=== PATIENT | female | born 1940 | race Caucasian/White ===

== ENCOUNTER → 2022-12-06 | Outpatient (CLI) | payer MEDICARE, OTHER ==
[2022-12-07 11:00] LABS: Source, Urine Clean Catch
[2022-12-07 13:10] LABS: Appearance, Urine Cloudy (Clear); Bilirubin, Urine Neg (Neg); Blood, Urine 5+ (Neg); Glucose Qualitative, Urine Neg (Neg); Ketones, Urine Neg (Neg); Leukocyte Esterase, Urine 3+ (Neg); Nitrite, Urine Neg (Neg); Protein, Urine 3+ (Neg); Urobilinogen, Urine NORM (Normal)
[2022-12-07 13:24] LABS: Color, Urine Pale Yellow (P-Yellow)
[2022-12-07 13:25] LABS: Bacteria Many /hpf; Squamous Epithelial Cells Not Seen /hpf (Few); White Blood Cells, Urine TNTC /hpf (0-5)
== END ==
LOC: LAB SHORT 20:00 → LAB 20:00
DX: N39.0 Urinary tract infection, site not specified (principal)
CPT/HCPCS: 81001; 87077; 87086; 87186

== ENCOUNTER → 2022-12-30 | Outpatient (CLI) | payer MEDICARE, OTHER ==
[2022-12-31 17:39] LABS: Source, Urine Clean Catch
[2022-12-31 18:57] LABS: Appearance, Urine Turbid (Clear); Bilirubin, Urine Neg (Neg); Blood, Urine 4+ (Neg); Glucose Qualitative, Urine Neg (Neg); Ketones, Urine Neg (Neg); Leukocyte Esterase, Urine 3+ (Neg); Nitrite, Urine Pos (Neg); Protein, Urine 2+ (Neg); Urobilinogen, Urine NORM (Normal)
[2022-12-31 19:33] LABS: Color, Urine Pale Yellow (P-Yellow)
[2022-12-31 19:37] LABS: White Blood Cells, Urine TNTC /hpf (0-5)
[2022-12-31 19:38] LABS: Bacteria Many /hpf; Mucus Light (0-Heavy); Squamous Epithelial Cells Few /hpf (Few); Transitional Epithelial Cells Few /hpf (0-Rare)
== END | disposition home or self-care (01) ==
LOC: LAB SHORT 07:00 → LAB 07:00
PROVIDERS: Physician Assistant
DX: R10.84 Generalized abdominal pain (principal); R30.0 Dysuria; R35.0 Frequency of micturition
CPT/HCPCS: 81001; 87077; 87086; 87186

== ENCOUNTER → 2023-02-13 | Outpatient (CLI) | payer MEDICARE, OTHER ==
[2023-02-13 14:56] LABS: Source, Urine Clean Catch
[2023-02-13 15:40] LABS: Appearance, Urine Cloudy (Clear); Bilirubin, Urine Neg (Neg); Blood, Urine 5+ (Neg); Color, Urine Yellow (P-Yellow); Glucose Qualitative, Urine Neg (Neg); Ketones, Urine Neg (Neg); Leukocyte Esterase, Urine 3+ (Neg); Nitrite, Urine Pos (Neg); Protein, Urine 2+ (Neg); Urobilinogen, Urine NORM (Normal)
[2023-02-13 16:09] LABS: Bacteria Many /hpf; Squamous Epithelial Cells Few /hpf (Few); White Blood Cells, Urine TNTC /hpf (0-5)
== END ==
LOC: LAB 14:53 → LAB SHORT 14:53
PROVIDERS: Internal Medicine
DX: N39.0 Urinary tract infection, site not specified (principal)
CPT/HCPCS: 81001; 87077; 87086; 87186

== ENCOUNTER → 2023-03-26 | Outpatient (CLI) | payer MEDICARE, OTHER ==
[2023-03-27 10:45] LABS: Source, Urine Clean Catch
[2023-03-27 12:43] LABS: Appearance, Urine Hazy (Clear); Bilirubin, Urine Neg (Neg); Blood, Urine 4+ (Neg); Color, Urine Yellow (P-Yellow); Glucose Qualitative, Urine Neg (Neg); Ketones, Urine Neg (Neg); Leukocyte Esterase, Urine 3+ (Neg); Nitrite, Urine Pos (Neg); Protein, Urine 2+ (Neg); Specific Gravity, Urine 1.025 (1.003-1.022); Urobilinogen, Urine NORM (Normal)
[2023-03-27 13:14] LABS: White Blood Cells, Urine TNTC /hpf (0-5)
[2023-03-27 13:15] LABS: Bacteria Many /hpf; Squamous Epithelial Cells Few /hpf (Few)
== END | disposition home or self-care (01) ==
LOC: LAB SHORT 10:39 → LAB 10:39
PROVIDERS: Physician Assistant
DX: N39.0 Urinary tract infection, site not specified (principal)
CPT/HCPCS: 81001; 87077; 87086; 87186

== ENCOUNTER → 2023-04-03 | Outpatient (CLI) | payer MEDICARE, OTHER ==
[2023-04-04 15:55] LABS: Source, Urine Clean Catch
[2023-04-04 16:22] LABS: Appearance, Urine Turbid (Clear); Bilirubin, Urine Neg (Neg); Blood, Urine 5+ (Neg); Color, Urine Yellow (P-Yellow); Glucose Qualitative, Urine Neg (Neg); Ketones, Urine Neg (Neg); Leukocyte Esterase, Urine 3+ (Neg); Nitrite, Urine Pos (Neg); Protein, Urine 3+ (Neg); Specific Gravity, Urine 1.025 (1.003-1.022); Urobilinogen, Urine NORM (Normal)
[2023-04-04 16:32] LABS: Bacteria Many /hpf; Calcium Oxalate Crystals Rare /hpf; Squamous Epithelial Cells Few /hpf (Few); White Blood Cells, Urine TNTC /hpf (0-5)
== END ==
LOC: LAB SHORT 13:30 → LAB 13:30
PROVIDERS: Physician Assistant
DX: N39.0 Urinary tract infection, site not specified (principal)
CPT/HCPCS: 81001; 87077; 87086; 87186

== ENCOUNTER → 2023-04-24 | Outpatient (CLI) | payer MEDICARE, OTHER ==
[2023-04-24 16:00] LABS: Source, Urine Clean Catch
[2023-04-24 16:34] LABS: Appearance, Urine Hazy (Clear); Bilirubin, Urine Neg (Neg); Blood, Urine 5+ (Neg); Color, Urine Yellow (P-Yellow); Glucose Qualitative, Urine Neg (Neg); Ketones, Urine Neg (Neg); Leukocyte Esterase, Urine 3+ (Neg); Nitrite, Urine Pos (Neg); Protein, Urine 3+ (Neg); Specific Gravity, Urine 1.025 (1.003-1.022); Urobilinogen, Urine NORM (Normal)
[2023-04-24 16:46] LABS: Bacteria Many /hpf; Squamous Epithelial Cells Few /hpf (Few); White Blood Cells, Urine TNTC /hpf (0-5)
[2023-04-24 16:47] LABS: Renal Epithelial Rare /hpf (0-Rare); Transitional Epithelial Cells Rare /hpf (0-Rare)
== END | disposition home or self-care (01) ==
LOC: LAB 15:58 → LAB SHORT 15:58
PROVIDERS: Physician Assistant
DX: N39.0 Urinary tract infection, site not specified (principal)
CPT/HCPCS: 81001; 87077; 87086; 87186

== ENCOUNTER → 2023-05-16 | Outpatient (CLI) | payer MEDICARE, OTHER ==
[2023-05-16 18:08] LABS: Source, Urine Clean Catch
[2023-05-16 19:24] LABS: Appearance, Urine Clear (Clear); Bilirubin, Urine Neg (Neg); Blood, Urine Neg (Neg); Color, Urine Yellow (P-Yellow); Glucose Qualitative, Urine Neg (Neg); Ketones, Urine Neg (Neg); Leukocyte Esterase, Urine Neg (Neg); Nitrite, Urine Neg (Neg); Protein, Urine Neg (Neg); Urobilinogen, Urine NORM (Normal)
== END ==
LOC: LAB 18:06 → LAB SHORT 18:06
PROVIDERS: Physician Assistant
DX: N39.0 Urinary tract infection, site not specified (principal)
CPT/HCPCS: 81003

== ENCOUNTER → 2023-06-27 | Outpatient (CLI) | payer MEDICARE, OTHER ==
[2023-06-27 17:29] LABS: Source, Urine Clean Catch
[2023-06-27 19:05] LABS: Appearance, Urine Hazy (Clear); Bilirubin, Urine Neg (Neg); Blood, Urine 3+ (Neg); Glucose Qualitative, Urine Neg (Neg); Ketones, Urine Neg (Neg); Leukocyte Esterase, Urine 3+ (Neg); Nitrite, Urine Neg (Neg); Protein, Urine Neg (Neg); Specific Gravity, Urine 1.015 (1.003-1.022); Urobilinogen, Urine NORM (Normal)
[2023-06-27 19:37] LABS: Color, Urine Pale Yellow (P-Yellow)
[2023-06-27 19:38] LABS: White Blood Cells, Urine 50-100 /hpf (0-5)
[2023-06-27 19:39] LABS: Bacteria Many /hpf; Squamous Epithelial Cells Mod /hpf (Few); Transitional Epithelial Cells Rare /hpf (0-Rare)
== END ==
LOC: LAB 17:26 → LAB SHORT 17:26
PROVIDERS: Nurse Practitioner Family
DX: N39.0 Urinary tract infection, site not specified (principal)
CPT/HCPCS: 81001; 87077; 87086; 87186

== ENCOUNTER 2023-07-17 07:47 | Inpatient (IN) | payer MEDICARE, OTHER ==
[~2023-07-17] VITALS: Ht 157.5 cm; Wt 64.3 kg
[2023-07-17] MEDS ORDERED: IBUP600 PO (08:05)
[2023-07-17] MEDS ORDERED: RISPERDAL PO (08:06)
[2023-07-17] MEDS ORDERED: QUET25 PO ×2 (08:06→16:52)
[2023-07-17] MEDS ORDERED: POTA10T PO (08:06)
[2023-07-17] MEDS ORDERED: LACT PO (08:06)
[2023-07-17] MEDS ORDERED: ONELAX10 MG PR (08:07)
[2023-07-17] MEDS ORDERED: TRIM100 PO (08:07)
[2023-07-17] MEDS ORDERED: ACET325 PO (08:07)
[2023-07-17] MEDS ORDERED: ANORO ELLIPTA1 EACH INH (08:08)
[2023-07-17] MEDS ORDERED: Acyclovir800 MG PO (08:08)
[2023-07-17] MEDS ORDERED: ZYRTEC10 M2 PO (08:08)
[2023-07-17] MEDS ORDERED: FURO20 PO (08:09)
[2023-07-17] MEDS ORDERED: HYDHCL25 PO (08:15)
[2023-07-17] MEDS ORDERED: Loperamide2 MG PO (08:16)
[2023-07-17] MEDS ORDERED: PROAIR RESPICL90 MCG INH (08:17)
[2023-07-17 08:31] LABS: BASOPHILS ABSOLUTE AUTO 0.02 K/mm3 (0.00-0.23); BASOPHILS PERCENT AUTO 0 % (0-2); EOSINOPHILS PERCENT AUTO 0 % (0-6); Hematocrit 35.6 % (33.0-51.0); IMMATURE GRAN ABSOLUTE AUTO 0.06 K/mm3 (0.00-0.10); IMMATURE GRAN PERCENT AUTO 0 % (0-1); LYMPHOCYTES ABSOLUTE AUTO 0.65 K/mm3 (0.84-5.20); LYMPHOCYTES PERCENT AUTO 4 % (21-46); MONOCYTES ABSOLUTE AUTO 0.83 K/mm3 (0.16-1.47); MONOCYTES PERCENT AUTO 6 % (4-13); Mean Corpuscular HGB 29.6 pg (26.0-34.0); Mean Corpuscular HGB Conc 33.7 g/dL (31.5-36.5); Mean Corpuscular Volume 88 fL (80-100); Mean Platelet Volume 9.8 fL (9.1-12.4); NEUTROPHILS ABSOLUTE AUTO 13.06 K/mm3 (1.96-9.15); NEUTROPHILS PERCENT AUTO 89 % (41-73); Platelet Count 213 K/mm3 (150-400); RDW Coefficient Variation 13.1 % (11.7-14.2); RDW Standard Deviation 42.2 fL (35.1-46.3); Red Blood Cell Count 4.06 M/mm3 (3.80-5.20); White Blood Cell Count 14.62 K/mm3 (4.00-11.30)
[2023-07-17 09:03] LABS: Albumin, Blood 3.3 g/dL (3.4-5.0); Albumin/Globulin Ratio 0.9 (0.8-1.8); Bilirubin, Total 1.2 mg/dL (0.1-1.0); Bun/Creatinine Ratio 20.9 (12.0-20.0); Calcium, Blood 9.2 mg/dL (8.5-10.1); Creatinine, Blood 0.91 mg/dL (0.40-1.00); Globulin, Blood 3.8 g/dL (2.2-4.0); Potassium, Blood 3.8 mmol/L (3.5-5.5); Total Protein, Blood 7.1 g/dL (6.4-8.2)
[2023-07-17] MEDS ORDERED: NS 1,000 ML IV SCH ×2 (11:15→14:40)
[2023-07-17 13:01] LABS: Source, Urine Clean Catch
[2023-07-17 13:05] LABS: Appearance, Urine Cloudy (Clear); Bilirubin, Urine Neg (Neg); Blood, Urine 4+ (Neg); Color, Urine Yellow (P-Yellow); Glucose Qualitative, Urine Neg (Neg); Ketones, Urine 1+ (Neg); Leukocyte Esterase, Urine 3+ (Neg); Nitrite, Urine Pos (Neg); Protein, Urine 3+ (Neg); Specific Gravity, Urine 1.015 (1.003-1.022); Urobilinogen, Urine NORM (Normal)
[2023-07-17 13:25] LABS: White Blood Cells, Urine TNTC /hpf (0-5)
[2023-07-17 13:26] LABS: Bacteria Many /hpf; Squamous Epithelial Cells Few /hpf (Few)
[2023-07-17] MEDS ORDERED: CefTRIAXone Sodium 1,000 MG in NS 100 ML IV SCH (15:10)
[2023-07-17] MEDS ORDERED: CYMBALTA30 M1 PO (16:49)
[2023-07-17] MEDS ORDERED: Estrace Vagin42.5 GM VAG (16:50)
[2023-07-17] MEDS ORDERED: Acetaminophen 500 MG Tab PO ONE (17:10)
[2023-07-17] MEDS ORDERED: Furosemide 10 MG / ML 2ML Vial IV ONE (17:10)
[2023-07-17] MEDS ORDERED: Acetaminophen 650 MG Supp PR ONE (17:25)
[2023-07-17] MEDS ORDERED: Acetaminophen 325 MG TABLET PO PRN (17:45)
[2023-07-17 19:47] LABS: Albumin, Blood 3.3 g/dL (3.4-5.0); Albumin/Globulin Ratio 0.8 (0.8-1.8); Bilirubin, Total 1.4 mg/dL (0.1-1.0); Bun/Creatinine Ratio 22.7 (12.0-20.0); Calcium, Blood 8.7 mg/dL (8.5-10.1); Creatinine, Blood 0.79 mg/dL (0.40-1.00); Globulin, Blood 4.2 g/dL (2.2-4.0); Potassium, Blood 3.2 mmol/L (3.5-5.5); Total Protein, Blood 7.5 g/dL (6.4-8.2)
[2023-07-17] MEDS ORDERED: Ipratropium/Albuterol SulF 2.5-0.5MG/3 ML Amp INH SCH (19:50)
[2023-07-17 20:16] VITALS: BP 135/70
[2023-07-17] MEDS ORDERED: Potassium Chl 20MEQ/Water100ML 100 ML IV STA (20:20)
[2023-07-17] MEDS ORDERED: NS 250 ML IV PRN (20:45)
[2023-07-17] MEDS ORDERED: QUEtiapine Fumarate 25 MG Tab PO SCH (21:00)
[2023-07-17] MEDS ORDERED: RisperiDONE 0.25 MG Tab PO SCH (21:00)
[2023-07-17] MEDS ORDERED: Acyclovir 400 MG Tab PO SCH (21:00)
[2023-07-17] MEDS ORDERED: DULoxetine HCL 30 MG Cap DR PO SCH (21:00)
[2023-07-17] MEDS ORDERED: Ketorolac Tromethamine 15mg Vial IV ONE (23:25)
[2023-07-17 23:49] VITALS: BP 116/60
[2023-07-18 04:31] VITALS: BP 99/53
[2023-07-18 05:14] LABS: BASOPHILS ABSOLUTE AUTO 0.02 K/mm3 (0.00-0.23); BASOPHILS PERCENT AUTO 0 % (0-2); EOSINOPHILS PERCENT AUTO 0 % (0-6); Hematocrit 33.4 % (33.0-51.0); IMMATURE GRAN ABSOLUTE AUTO 0.04 K/mm3 (0.00-0.10); IMMATURE GRAN PERCENT AUTO 0 % (0-1); LYMPHOCYTES ABSOLUTE AUTO 1.22 K/mm3 (0.84-5.20); LYMPHOCYTES PERCENT AUTO 10 % (21-46); MONOCYTES ABSOLUTE AUTO 1.13 K/mm3 (0.16-1.47); MONOCYTES PERCENT AUTO 9 % (4-13); Mean Corpuscular HGB 29.1 pg (26.0-34.0); Mean Corpuscular HGB Conc 32.9 g/dL (31.5-36.5); Mean Corpuscular Volume 88 fL (80-100); Mean Platelet Volume 10.3 fL (9.1-12.4); NEUTROPHILS ABSOLUTE AUTO 10.08 K/mm3 (1.96-9.15); NEUTROPHILS PERCENT AUTO 81 % (41-73); Platelet Count 195 K/mm3 (150-400); RDW Standard Deviation 42.7 fL (35.1-46.3); Red Blood Cell Count 3.78 M/mm3 (3.80-5.20); White Blood Cell Count 12.49 K/mm3 (4.00-11.30)
[2023-07-18 06:00] LABS: Albumin/Globulin Ratio 0.8 (0.8-1.8); Bilirubin, Total 0.5 mg/dL (0.1-1.0); Bun/Creatinine Ratio 24.2 (12.0-20.0); Calcium, Blood 8.4 mg/dL (8.5-10.1); Creatinine, Blood 0.95 mg/dL (0.40-1.00); Globulin, Blood 3.6 g/dL (2.2-4.0); Potassium, Blood 3.4 mmol/L (3.5-5.5); Total Protein, Blood 6.6 g/dL (6.4-8.2)
[2023-07-18 07:58] VITALS: BP 140/75
[2023-07-18] MEDS ORDERED: CefTRIAXone Sodium 1,000 MG in NS 100 ML IV SCH (09:00)
[2023-07-18] MEDS ORDERED: Enoxaparin 40 MG/0.4 ML SYR SC SCH (09:00)
[2023-07-18 11:03] VITALS: BP 100/54
[2023-07-18] MEDS ORDERED: CefTRIAXone Sodium 2,000 MG in NS 100 ML IV SCH (12:00)
[2023-07-18 15:53] VITALS: BP 120/78
[2023-07-18 19:35] VITALS: BP 158/79
[2023-07-18 23:20] VITALS: BP 115/56
[2023-07-19 04:08] VITALS: BP 144/67
[2023-07-19 04:43] LABS: BASOPHILS ABSOLUTE AUTO 0.01 K/mm3 (0.00-0.23); BASOPHILS PERCENT AUTO 0 % (0-2); EOSINOPHILS ABSOLUTE AUTO 0.04 K/mm3 (0.00-0.68); EOSINOPHILS PERCENT AUTO 1 % (0-6); Hematocrit 34.3 % (33.0-51.0); Hemoglobin 11.2 g/dL (11.5-16.0); IMMATURE GRAN ABSOLUTE AUTO 0.02 K/mm3 (0.00-0.10); IMMATURE GRAN PERCENT AUTO 0 % (0-1); LYMPHOCYTES ABSOLUTE AUTO 1.42 K/mm3 (0.84-5.20); LYMPHOCYTES PERCENT AUTO 17 % (21-46); MONOCYTES PERCENT AUTO 13 % (4-13); Mean Corpuscular HGB 28.7 pg (26.0-34.0); Mean Corpuscular HGB Conc 32.7 g/dL (31.5-36.5); Mean Corpuscular Volume 88 fL (80-100); Mean Platelet Volume 9.6 fL (9.1-12.4); NEUTROPHILS ABSOLUTE AUTO 5.82 K/mm3 (1.96-9.15); NEUTROPHILS PERCENT AUTO 69 % (41-73); Platelet Count 199 K/mm3 (150-400); RDW Coefficient Variation 13.2 % (11.7-14.2); RDW Standard Deviation 42.7 fL (35.1-46.3); White Blood Cell Count 8.41 K/mm3 (4.00-11.30)
[2023-07-19 05:04] LABS: Albumin, Blood 2.9 g/dL (3.4-5.0); Albumin/Globulin Ratio 0.7 (0.8-1.8); Bilirubin, Total 0.3 mg/dL (0.1-1.0); Bun/Creatinine Ratio 21.5 (12.0-20.0); Creatinine, Blood 0.84 mg/dL (0.40-1.00); Globulin, Blood 3.9 g/dL (2.2-4.0); Potassium, Blood 3.4 mmol/L (3.5-5.5); Total Protein, Blood 6.8 g/dL (6.4-8.2)
[2023-07-19 08:04] VITALS: BP 124/60
[2023-07-19 11:08] VITALS: BP 114/56
[2023-07-19 15:21] VITALS: BP 118/64
[2023-07-19 17:24] VITALS: BP 143/61
[2023-07-19 20:11] VITALS: BP 138/63
[2023-07-19] MEDS ORDERED: Lactobacil 2-S.Thermo-Bifido 1 1 Cap PO SCH (21:00)
[2023-07-20 05:27] VITALS: BP 129/60
[2023-07-20 07:45] VITALS: BP 125/59
[2023-07-20 16:10] VITALS: BP 127/70
[2023-07-20] MEDS ORDERED: Acyclovir 400 MG Tab PO SCH (21:00)
[2023-07-20 21:01] VITALS: BP 135/66
[2023-07-21 05:12] VITALS: BP 135/57
[2023-07-21 05:31] LABS: BASOPHILS ABSOLUTE AUTO 0.02 K/mm3 (0.00-0.23); BASOPHILS PERCENT AUTO 0 % (0-2); EOSINOPHILS ABSOLUTE AUTO 0.09 K/mm3 (0.00-0.68); EOSINOPHILS PERCENT AUTO 1 % (0-6); Hemoglobin 10.5 g/dL (11.5-16.0); IMMATURE GRAN ABSOLUTE AUTO 0.04 K/mm3 (0.00-0.10); IMMATURE GRAN PERCENT AUTO 1 % (0-1); LYMPHOCYTES ABSOLUTE AUTO 1.96 K/mm3 (0.84-5.20); LYMPHOCYTES PERCENT AUTO 27 % (21-46); MONOCYTES PERCENT AUTO 11 % (4-13); Mean Corpuscular HGB 28.9 pg (26.0-34.0); Mean Corpuscular HGB Conc 32.8 g/dL (31.5-36.5); Mean Corpuscular Volume 88 fL (80-100); Mean Platelet Volume 9.7 fL (9.1-12.4); NEUTROPHILS ABSOLUTE AUTO 4.34 K/mm3 (1.96-9.15); NEUTROPHILS PERCENT AUTO 60 % (41-73); Platelet Count 250 K/mm3 (150-400); RDW Coefficient Variation 13.2 % (11.7-14.2); RDW Standard Deviation 42.5 fL (35.1-46.3); Red Blood Cell Count 3.63 M/mm3 (3.80-5.20); White Blood Cell Count 7.25 K/mm3 (4.00-11.30)
[2023-07-21 05:46] LABS: Bun/Creatinine Ratio 19.3 (12.0-20.0); Calcium, Blood 8.8 mg/dL (8.5-10.1); Creatinine, Blood 0.73 mg/dL (0.40-1.00); Potassium, Blood 3.2 mmol/L (3.5-5.5)
[2023-07-21 07:08] VITALS: BP 117/51
[2023-07-21 15:35] VITALS: BP 151/68
[2023-07-21 19:25] VITALS: BP 134/64
[2023-07-22 05:13] VITALS: BP 150/69
[2023-07-22 07:06] VITALS: BP 155/67
[2023-07-22 08:09] LABS: BASOPHILS ABSOLUTE AUTO 0.01 K/mm3 (0.00-0.23); BASOPHILS PERCENT AUTO 0 % (0-2); EOSINOPHILS ABSOLUTE AUTO 0.14 K/mm3 (0.00-0.68); EOSINOPHILS PERCENT AUTO 2 % (0-6); Hematocrit 34.7 % (33.0-51.0); Hemoglobin 11.4 g/dL (11.5-16.0); IMMATURE GRAN ABSOLUTE AUTO 0.06 K/mm3 (0.00-0.10); IMMATURE GRAN PERCENT AUTO 1 % (0-1); LYMPHOCYTES ABSOLUTE AUTO 1.52 K/mm3 (0.84-5.20); LYMPHOCYTES PERCENT AUTO 17 % (21-46); MONOCYTES ABSOLUTE AUTO 0.66 K/mm3 (0.16-1.47); MONOCYTES PERCENT AUTO 8 % (4-13); Mean Corpuscular HGB 28.8 pg (26.0-34.0); Mean Corpuscular HGB Conc 32.9 g/dL (31.5-36.5); Mean Corpuscular Volume 88 fL (80-100); Mean Platelet Volume 8.9 fL (9.1-12.4); NEUTROPHILS ABSOLUTE AUTO 6.45 K/mm3 (1.96-9.15); NEUTROPHILS PERCENT AUTO 73 % (41-73); Platelet Count 278 K/mm3 (150-400); RDW Coefficient Variation 12.9 % (11.7-14.2); RDW Standard Deviation 41.4 fL (35.1-46.3); Red Blood Cell Count 3.96 M/mm3 (3.80-5.20); White Blood Cell Count 8.84 K/mm3 (4.00-11.30)
[2023-07-22 08:34] LABS: Bun/Creatinine Ratio 15.2 (12.0-20.0); Creatinine, Blood 0.66 mg/dL (0.40-1.00); Potassium, Blood 3.5 mmol/L (3.5-5.5)
[2023-07-22 16:31] VITALS: BP 140/66
[2023-07-22 20:29] VITALS: BP 128/58
[2023-07-23 03:30] VITALS: BP 149/69
[2023-07-23 07:29] VITALS: BP 140/61
== END 2023-07-23 10:16 | disposition home or self-care (01) | DRG 871 ==
LOC: ER 07:47 → PCU 17:42 → MEDS 17:42 → PCU 20:01 → MEDS 07-19 17:20
PROVIDERS: Internal Medicine; Physician Assistant; ADMIT Family Medicine
PROC: 5A09357 Assistance with Respiratory Ventilation, Less than 24 Consecutive Hours, Continuous Positive Airway Pressure (ICD-10-PCS; principal; 2023-07-17)
PROC: 3E03329 Introduction of Other Anti-infective into Peripheral Vein, Percutaneous Approach (ICD-10-PCS; 2023-07-17)
DX: A41.51 Sepsis due to Escherichia coli [E. coli] (principal); J81.0 Acute pulmonary edema; J96.01 Acute respiratory failure with hypoxia; N39.0 Urinary tract infection, site not specified; F03.918 Unspecified dementia, unspecified severity, with other behavioral disturbance; F03.93 Unspecified dementia, unspecified severity, with mood disturbance; J44.9 Chronic obstructive pulmonary disease, unspecified; A60.00 Herpesviral infection of urogenital system, unspecified; Z66 Do not resuscitate; R54 Age-related physical debility; Z91.040 Latex allergy status; Z88.8 Allergy status to other drugs, medicaments and biological substances
CPT/HCPCS: 36415; 71045; 71046; 74176; 80048; 80053; 81001; 83605; 85025; 87040; 87077; 87086; 87186; 92526; 92610; 93005; 93010; 94640; 94660; 94664; 94760; 94762; 96365-59; 96375-59; 97162; 97530; 99285-25; A9270; J0696; J1650; J1885; J1940; J3480; J7030; J7050

== ENCOUNTER → 2023-07-30 | Outpatient (CLI) | payer MEDICARE, OTHER ==
[~2023-07-30] MED LIST: ACET325 PO; ANORO ELLIPTA1 EACH INH; Acyclovir800 MG PO; CYMBALTA30 M1 PO; Estrace Vagin42.5 GM VAG; FURO20 PO; HYDHCL25 PO; IBUP600 PO; LACT PO; Loperamide2 MG PO; ONELAX10 MG PR; POTA10T PO; PROAIR RESPICL90 MCG INH; QUET25 PO; RISPERDAL PO; TRIM100 PO; ZYRTEC10 M2 PO
[2023-07-30 15:27] LABS: Source, Urine Clean Catch
[2023-07-30 16:29] LABS: Appearance, Urine Clear (Clear); Bilirubin, Urine Neg (Neg); Blood, Urine Neg (Neg); Glucose Qualitative, Urine Neg (Neg); Ketones, Urine Neg (Neg); Leukocyte Esterase, Urine Neg (Neg); Nitrite, Urine Neg (Neg); Protein, Urine Neg (Neg); Urobilinogen, Urine NORM (Normal)
[2023-07-30 16:42] LABS: Color, Urine Pale Yellow (P-Yellow)
== END | disposition home or self-care (01) ==
LOC: LAB SHORT 13:30 → LAB 13:30
PROVIDERS: Physician Assistant
DX: N39.0 Urinary tract infection, site not specified (principal)
CPT/HCPCS: 81003

== ENCOUNTER → 2023-09-29 | Outpatient (CLI) | payer MEDICARE, OTHER ==
[2023-09-30 11:46] LABS: Source, Urine Clean Catch
[2023-09-30 13:14] LABS: Appearance, Urine Hazy (Clear); Bilirubin, Urine Neg (Neg); Blood, Urine 3+ (Neg); Glucose Qualitative, Urine Neg (Neg); Ketones, Urine Neg (Neg); Leukocyte Esterase, Urine 3+ (Neg); Nitrite, Urine Neg (Neg); Protein, Urine 1+ (Neg); Urobilinogen, Urine NORM (Normal)
[2023-09-30 14:04] LABS: Color, Urine Pale Yellow (P-Yellow)
[2023-09-30 14:05] LABS: Bacteria Many /hpf; Red Blood Cells, Urine 0-2 /hpf (0-2); Squamous Epithelial Cells Few /hpf (Few); White Blood Cells, Urine 50-100 /hpf (0-5)
== END ==
LOC: LAB SHORT 18:00 → LAB 18:00
PROVIDERS: Physician Assistant
DX: N39.0 Urinary tract infection, site not specified (principal)
CPT/HCPCS: 81001; 87077; 87086; 87186

== ENCOUNTER → 2023-12-17 | Outpatient (CLI) | payer MEDICARE, OTHER ==
[2023-12-17 10:50] LABS: Source, Urine Clean Catch
[2023-12-17 12:31] LABS: Appearance, Urine Hazy (Clear); Bilirubin, Urine Neg (Neg); Blood, Urine 5+ (Neg); Color, Urine Yellow (P-Yellow); Glucose Qualitative, Urine Neg (Neg); Ketones, Urine Neg (Neg); Leukocyte Esterase, Urine 3+ (Neg); Nitrite, Urine Pos (Neg); Protein, Urine 2+ (Neg); Urobilinogen, Urine NORM (Normal)
[2023-12-17 12:54] LABS: Bacteria Many /hpf; Squamous Epithelial Cells Few /hpf (Few); White Blood Cells, Urine TNTC /hpf (0-5)
== END ==
LOC: LAB SHORT 10:46 → LAB 10:46
PROVIDERS: Physician Assistant
DX: N39.0 Urinary tract infection, site not specified (principal)
CPT/HCPCS: 81001; 87077; 87086; 87186

== ENCOUNTER → 2024-01-22 | Outpatient (CLI) | payer MEDICARE, OTHER ==
[2024-01-22 15:21] LABS: Source, Urine Clean Catch
[2024-01-22 16:21] LABS: Appearance, Urine Turbid (Clear); Bilirubin, Urine Neg (Neg); Blood, Urine 5+ (Neg); Color, Urine Yellow (P-Yellow); Glucose Qualitative, Urine Neg (Neg); Ketones, Urine Neg (Neg); Leukocyte Esterase, Urine 3+ (Neg); Nitrite, Urine Pos (Neg); Protein, Urine 3+ (Neg); Specific Gravity, Urine 1.025 (1.003-1.022); Urobilinogen, Urine NORM (Normal)
[2024-01-22 16:44] LABS: Bacteria Many /hpf; Red Blood Cells, Urine TNTC /hpf (0-2); Squamous Epithelial Cells Rare /hpf (Few); White Blood Cells, Urine TNTC /hpf (0-5)
== END | disposition home or self-care (01) ==
LOC: LAB SHORT 15:19 → LAB 15:19
PROVIDERS: Physician Assistant
DX: N39.0 Urinary tract infection, site not specified (principal)
CPT/HCPCS: 81001; 87077; 87086; 87186

== ENCOUNTER → 2024-02-25 | Outpatient (CLI) | payer MEDICARE, OTHER ==
[2024-02-26 15:41] LABS: Source, Urine Clean Catch
[2024-02-26 18:12] LABS: Appearance, Urine Cloudy (Clear); Bilirubin, Urine Neg (Neg); Blood, Urine 1+ (Neg); Color, Urine Yellow (P-Yellow); Glucose Qualitative, Urine Neg (Neg); Ketones, Urine Neg (Neg); Leukocyte Esterase, Urine 1+ (Neg); Nitrite, Urine Neg (Neg); Protein, Urine 1+ (Neg); Urobilinogen, Urine NORM (Normal)
[2024-02-26 18:33] LABS: Calcium Oxalate Crystals Mod /hpf
[2024-02-26 18:34] LABS: Amorphous Mod (0-Heavy); Bacteria Mod /hpf; Red Blood Cells, Urine 0-2 /hpf (0-2); Squamous Epithelial Cells Rare /hpf (Few)
== END ==
LOC: LAB 15:38 → LAB SHORT 15:38
PROVIDERS: Physician Assistant
DX: N39.0 Urinary tract infection, site not specified (principal)
CPT/HCPCS: 81001

== ENCOUNTER → 2024-04-16 | Outpatient (CLI) | payer MEDICARE, OTHER ==
[2024-04-16 17:16] LABS: Source, Urine Clean Catch
[2024-04-16 18:36] LABS: Appearance, Urine Cloudy (Clear); Bilirubin, Urine Neg (Neg); Blood, Urine 2+ (Neg); Glucose Qualitative, Urine Neg (Neg); Ketones, Urine Neg (Neg); Leukocyte Esterase, Urine 3+ (Neg); Nitrite, Urine Pos (Neg); Protein, Urine 2+ (Neg); Specific Gravity, Urine 1.015 (1.003-1.022); Urobilinogen, Urine NORM (Normal)
[2024-04-16 18:52] LABS: Color, Urine Pale Yellow (P-Yellow)
[2024-04-16 18:53] LABS: Bacteria Many /hpf; Red Blood Cells, Urine 0-2 /hpf (0-2); Squamous Epithelial Cells Rare /hpf (Few); White Blood Cells, Urine 50-100 /hpf (0-5)
== END ==
LOC: LAB 17:13 → LAB SHORT 17:13
PROVIDERS: Physician Assistant
DX: N39.0 Urinary tract infection, site not specified (principal)
CPT/HCPCS: 81001; 87077; 87086; 87186

== ENCOUNTER → 2024-04-27 | Outpatient (CLI) | payer MEDICARE, OTHER ==
[2024-04-27 19:04] LABS: Source, Urine Clean Catch
[2024-04-27 19:50] LABS: Appearance, Urine Clear (Clear); Bilirubin, Urine Neg (Neg); Blood, Urine 3+ (Neg); Glucose Qualitative, Urine Neg (Neg); Ketones, Urine Neg (Neg); Leukocyte Esterase, Urine Neg (Neg); Nitrite, Urine Neg (Neg); Protein, Urine Neg (Neg); Urobilinogen, Urine NORM (Normal); pH, Urine 6.5 (5.0-8.0)
[2024-04-27 19:58] LABS: Color, Urine Pale Yellow (P-Yellow)
[2024-04-27 20:03] LABS: White Blood Cells, Urine 0-2 /hpf (0-5)
[2024-04-27 20:04] LABS: Bacteria Rare /hpf; Squamous Epithelial Cells Few /hpf (Few)
== END | disposition home or self-care (01) ==
LOC: LAB SHORT 19:01 → LAB 19:01
PROVIDERS: Physician Assistant
DX: N39.0 Urinary tract infection, site not specified (principal)
CPT/HCPCS: 81001

== ENCOUNTER → 2024-05-12 | Outpatient (CLI) | payer MEDICARE, OTHER ==
[2024-05-13 10:36] LABS: Source, Urine Clean Catch
[2024-05-13 12:57] LABS: Appearance, Urine Clear (Clear); Bilirubin, Urine Neg (Neg); Blood, Urine 1+ (Neg); Glucose Qualitative, Urine Neg (Neg); Ketones, Urine Neg (Neg); Leukocyte Esterase, Urine 1+ (Neg); Nitrite, Urine Neg (Neg); Protein, Urine Neg (Neg); Specific Gravity, Urine 1.015 (1.003-1.022); Urobilinogen, Urine NORM (Normal)
[2024-05-13 14:19] LABS: Bacteria Rare /hpf; Color, Urine Pale Yellow (P-Yellow); Red Blood Cells, Urine 0-2 /hpf (0-2); Squamous Epithelial Cells Rare /hpf (Few)
== END ==
LOC: LAB 10:34 → LAB SHORT 10:34
PROVIDERS: Physician Assistant
DX: N39.0 Urinary tract infection, site not specified (principal)
CPT/HCPCS: 81001; 87077; 87086; 87186

== ENCOUNTER 2024-05-26 16:49 | Inpatient (IN) | payer MEDICARE, OTHER ==
[~2024-05-26] VITALS: Ht 167.6 cm; Wt 65.9 kg
[2024-05-26] MEDS ORDERED: Azithromycin 500 MG in NS 250 ML IV ONE (17:25)
[2024-05-26] MEDS ORDERED: CefTRIAXone Sodium 1,000 MG in NS 100 ML IV ONE (17:25)
[2024-05-26 17:34] LABS: BASOPHILS ABSOLUTE AUTO 0.02 K/mm3 (0.00-0.23); BASOPHILS PERCENT AUTO 0 % (0-2); EOSINOPHILS ABSOLUTE AUTO 0.01 K/mm3 (0.00-0.68); EOSINOPHILS PERCENT AUTO 0 % (0-6); Hematocrit 42.6 % (33.0-51.0); Hemoglobin 14.1 g/dL (11.5-16.0); IMMATURE GRAN ABSOLUTE AUTO 0.04 K/mm3 (0.00-0.10); IMMATURE GRAN PERCENT AUTO 0 % (0-1); LYMPHOCYTES ABSOLUTE AUTO 1.26 K/mm3 (0.84-5.20); LYMPHOCYTES PERCENT AUTO 10 % (21-46); MONOCYTES ABSOLUTE AUTO 0.96 K/mm3 (0.16-1.47); MONOCYTES PERCENT AUTO 8 % (4-13); Mean Corpuscular HGB Conc 33.1 g/dL (31.5-36.5); Mean Corpuscular Volume 88 fL (80-100); NEUTROPHILS ABSOLUTE AUTO 10.21 K/mm3 (1.96-9.15); NEUTROPHILS PERCENT AUTO 82 % (41-73); Platelet Count 242 K/mm3 (150-400); RDW Coefficient Variation 12.6 % (11.7-14.2); RDW Standard Deviation 40.3 fL (35.1-46.3); Red Blood Cell Count 4.86 M/mm3 (3.80-5.20)
[2024-05-26 17:40] LABS: Bilirubin, Total 0.6 mg/dL (0.1-1.0); Bun/Creatinine Ratio 17.3 (12.0-20.0); Calcium, Blood 9.1 mg/dL (8.5-10.1); Creatinine, Blood 0.69 mg/dL (0.40-1.00); Globulin, Blood 4.1 g/dL (2.2-4.0); Potassium, Blood 3.7 mmol/L (3.5-5.5); Total Protein, Blood 8.1 g/dL (6.4-8.2)
[2024-05-26] MEDS ORDERED: NS 500 ML IV SCH ×2 (17:45→18:15)
[2024-05-26 18:03] LABS: Influenza A, PCR NEGATIVE (NEGATIVE); Influenza B, PCR NEGATIVE (NEGATIVE); Resp Syncytial Virus, PCR NEGATIVE (NEGATIVE)
[2024-05-26] MEDS ORDERED: NS 250 ML IV SCH (19:10)
[2024-05-26] MEDS ORDERED: Ketorolac Tromethamine 15mg Vial IV ONE (19:10)
[2024-05-26 19:20] LABS: PCO2 Arterial 36.8 mmHg (35-45); PO2 Arterial 71.5 mmHg (80-100); pH Blood Arterial 7.37 (7.35-7.45)
[2024-05-26 20:21] LABS: SARS-Cov-2 (COVID-19) PCR, MMC POSITIVE (NEGATIVE)
[2024-05-26] MEDS ORDERED: Ondansetron HCl 2 MG / ML 2ML Vial IV PRN (21:55)
[2024-05-26] MEDS ORDERED: FLU VACC TS2024-25(6MOS UP)/PF 45 MCG/0.5 ML SYRINGE IM ONE (21:55)
[2024-05-26] MEDS ORDERED: Remdesivir (EUA) 200 MG in NS 250 ML IV ONE (22:05)
[2024-05-26] MEDS ORDERED: HydrALAZINE HCl 20 MG / ML 1ML Vial IV PRN (23:55)
[2024-05-26 23:56] VITALS: BP 193/76
[2024-05-27] VITALS (7 sets, daily range): BP systolic 150–192; BP diastolic 72–87
--- NOTE | 2024-05-27 03:44 | NUR ---
SHIFT SUMMARY PATIENT IS ALERT AND ORIENTED TO SELF ONLY. PATIENT HAS HAD NO ACUTE EVENTS THIS SHIFT. VITAL SIGNS REVIEWED. PATIENT IS ADMITTED FOR HYPOXIC RESP/ COVID. PATIENT IS ON 4L NC SATTING ABOVE 95 PERCENT. PATIENT HAS NO COMPLAINTS OF SOB, NAUSEA, VOMITTING OR PAIN THIS SHIFT. BED IN LOCKED AND LOWEST POSITION. CALL LIGHT IN PLACE.
[2024-05-27 06:00] LABS: BASOPHILS ABSOLUTE AUTO 0.02 K/mm3 (0.00-0.23); BASOPHILS PERCENT AUTO 0 % (0-2); EOSINOPHILS PERCENT AUTO 0 % (0-6); Hematocrit 35.7 % (33.0-51.0); Hemoglobin 12.2 g/dL (11.5-16.0); IMMATURE GRAN ABSOLUTE AUTO 0.09 K/mm3 (0.00-0.10); IMMATURE GRAN PERCENT AUTO 1 % (0-1); LYMPHOCYTES ABSOLUTE AUTO 1.14 K/mm3 (0.84-5.20); LYMPHOCYTES PERCENT AUTO 8 % (21-46); MONOCYTES ABSOLUTE AUTO 1.17 K/mm3 (0.16-1.47); MONOCYTES PERCENT AUTO 8 % (4-13); Mean Corpuscular HGB 29.6 pg (26.0-34.0); Mean Corpuscular HGB Conc 34.2 g/dL (31.5-36.5); Mean Corpuscular Volume 87 fL (80-100); NEUTROPHILS ABSOLUTE AUTO 12.59 K/mm3 (1.96-9.15); NEUTROPHILS PERCENT AUTO 84 % (41-73); Platelet Count 203 K/mm3 (150-400); RDW Coefficient Variation 12.7 % (11.7-14.2); RDW Standard Deviation 39.9 fL (35.1-46.3); Red Blood Cell Count 4.12 M/mm3 (3.80-5.20); White Blood Cell Count 15.01 K/mm3 (4.00-11.30)
[2024-05-27 06:24] LABS: Albumin, Blood 3.3 g/dL (3.4-5.0); Albumin/Globulin Ratio 0.9 (0.8-1.8); Bilirubin, Total 0.4 mg/dL (0.1-1.0); Bun/Creatinine Ratio 23.5 (12.0-20.0); Calcium, Blood 8.1 mg/dL (8.5-10.1); Creatinine, Blood 0.55 mg/dL (0.40-1.00); Globulin, Blood 3.7 g/dL (2.2-4.0); Magnesium, Blood 1.9 mg/dL (1.6-2.4); Potassium, Blood 3.2 mmol/L (3.5-5.5)
[2024-05-27] MEDS ORDERED: Enoxaparin 40 MG/0.4 ML SYR SC SCH (09:00)
[2024-05-27] MEDS ORDERED: dexAMETHasone 4 MG TAB PO SCH (09:00)
[2024-05-27] MEDS ORDERED: Lactobacil 2-S.Thermo-Bifido 1 1 Cap PO SCH (09:00)
[2024-05-27] MEDS ORDERED: Remdesivir (EUA) 100 MG in NS 250 ML IV SCH (12:00)
[2024-05-27] MEDS ORDERED: Ipratropium/Albuterol SulF 2.5-0.5MG/3 ML Amp INH PRN (16:25)
[2024-05-27] MEDS ORDERED: Lisinopril 20 MG Tab PO SCH (18:00)
--- NOTE | 2024-05-27 18:17 | NUR ---
SHIFT SUMMARY PATIENT A/OX1, ABLE TO FOLLOW SIMPLE DIRECTIONS. PATIENT CODE STATUS CHANGED TO DNR. Q6H BLOOD GLUCOSE DISCONTINUED TODAY. WEANED FROM 4 LPM SUPPLEMENTAL OXYGEN TO ROOM AIR TODAY, SPO2 REMAINS ABOVE 92%. PUREWICK REMOVED TODAY DUE TO PATIENT WITH LATEX ALLERGY. NO RASH OR ADVERSE REACTION NOTED. CONTINUOUS PULSE OX IN PLACE. TELEMETRY IN PLACE, NO EVENTS NOTED. POTASSIUM 3.2 THIS AM, NOTIFIED. SPOKE WITH PATIENT'S FRINED OF 50 YEARS, JESSE, AND UPDATED HER ON PATIENT'S STATUS, PER HER REQUEST. CONTIONUES WITH Q2 HOUR REPOSITIONING. SYSTOLIC BLOOD PRESSURE THIS EVENING 190s, NOTIFIED AND LISINOPRIL PO STARTED. NO OTHER CONCERNS AT THIS TIME.
[2024-05-27] MEDS ORDERED: DULoxetine HCL 30 MG Cap DR PO SCH (21:00)
[2024-05-27] MEDS ORDERED: RisperiDONE 0.25 MG Tab PO SCH (21:00)
[2024-05-27] MEDS ORDERED: QUEtiapine Fumarate 25 MG Tab PO SCH (21:00)
[2024-05-28 04:14] VITALS: BP 128/49
[2024-05-28 05:26] LABS: BASOPHILS ABSOLUTE AUTO 0.01 K/mm3 (0.00-0.23); BASOPHILS PERCENT AUTO 0 % (0-2); EOSINOPHILS PERCENT AUTO 0 % (0-6); Hematocrit 31.9 % (33.0-51.0); Hemoglobin 10.8 g/dL (11.5-16.0); IMMATURE GRAN ABSOLUTE AUTO 0.02 K/mm3 (0.00-0.10); IMMATURE GRAN PERCENT AUTO 0 % (0-1); LYMPHOCYTES ABSOLUTE AUTO 1.89 K/mm3 (0.84-5.20); LYMPHOCYTES PERCENT AUTO 23 % (21-46); MONOCYTES ABSOLUTE AUTO 1.02 K/mm3 (0.16-1.47); MONOCYTES PERCENT AUTO 12 % (4-13); Mean Corpuscular HGB 29.5 pg (26.0-34.0); Mean Corpuscular HGB Conc 33.9 g/dL (31.5-36.5); Mean Corpuscular Volume 87 fL (80-100); Mean Platelet Volume 9.6 fL (9.1-12.4); NEUTROPHILS ABSOLUTE AUTO 5.27 K/mm3 (1.96-9.15); NEUTROPHILS PERCENT AUTO 64 % (41-73); Platelet Count 188 K/mm3 (150-400); RDW Standard Deviation 41.1 fL (35.1-46.3); Red Blood Cell Count 3.66 M/mm3 (3.80-5.20); White Blood Cell Count 8.21 K/mm3 (4.00-11.30)
--- NOTE | 2024-05-28 05:47 | NUR ---
ORIENTED TO NAME. COVID+, DROPLET ISOLATION. RA. REPOSITIONED AND BRIEFS CHANGED PRN. NO ACUTE NEEDS OVERNIGHT.
[2024-05-28 05:55] LABS: Albumin/Globulin Ratio 0.9 (0.8-1.8); Bilirubin, Total 0.4 mg/dL (0.1-1.0); Bun/Creatinine Ratio 25.7 (12.0-20.0); Calcium, Blood 8.2 mg/dL (8.5-10.1); Creatinine, Blood 0.7 mg/dL (0.40-1.00); Globulin, Blood 3.3 g/dL (2.2-4.0); Total Protein, Blood 6.3 g/dL (6.4-8.2)
[2024-05-28 07:09] VITALS: BP 130/59
--- NOTE | 2024-05-28 07:12 | NUR ---
ASSUMED CARE OF PATIENT. SLEEPING DURING SHIFT-CHANGE REPORT. SUPINE IN BED. ENHANCED PRECAUTIONS FOR COVID. BED IN LOWEST POSITION. CALL LIGHT WITHIN REACH.
[2024-05-28] MEDS ORDERED: Potassium Chloride 20 MEQ/15 ML UDC PO SCH (08:00)
--- NOTE | 2024-05-28 10:47 | NUR ---
FRIEND, JESSE, TO BEDSIDE TO VISIT. BROUGHT IN SOME READER GLASSES. CALL HER IF ANY ACUTE NEEDS. SHE WILL BE BRINGING BACK SOME CLOTHES FOR HER TO WEAR HOME WHEN IT IS TIME FOR DISCHARGE. FRIENDJESSE: [phone]
--- NOTE | 2024-05-28 12:44 | NUR ---
PICKUP TIME FOR 141. FRIEND, JESSE, NOTIFIED.
--- NOTE | 2024-05-28 13:42 | NUR ---
REPORT CALLED AND GIVEN TO [facility].
--- NOTE | 2024-05-28 14:47 | NUR ---
DISCHARGE SUMMARY: A&Ox1 SELF ONLY. PLEASANT AND COOPERATIVE WITH CARE. DOES NOT UTILIZE CALL SYSTEM BUT CAN ADVOCATE NEEDS WHEN STAFF BEDSIDE. SEEN BY PT: 1PA c FWW TO RECLINER AND 2PA c FWW TO BSC. CONTINENT OF BOWEL AND BLADDER c URGE INCONTINENCE. MEDS WHOLE c FLUIDS. TELE NSR IN 80s. SOME MINOR MALAISE R/T COVID INFx. MEDICATION REC FAXED TO [facility] AND REPORT CALLED TO GREGORY KERNS. INSTRUCTED TO FOLLOW-UP WITH PCP WITHIN ONE WEEK. LEFT FLOOR AT 1415 WITH ALL BELONGINGS AND DISCHARGE PACKET, ESCORTED BY MEDICAL TRANSPORT.
== END 2024-05-28 14:13 | disposition home or self-care (01) | DRG 177 ==
LOC: ER 16:49 → ERHOLD 21:51 → MEDS 21:51 → ENPENDDIS 05-28 13:02 → MEDS 05-28 14:13
PROVIDERS: Family Medicine; Student in an Organized Health Care Education/Training Program; ADMIT Student in an Organized Health Care Education/Training Program
PROC: 4A033R1 Measurement of Arterial Saturation, Peripheral, Percutaneous Approach (ICD-10-PCS; principal; 2024-05-26)
PROC: XW033E5 Introduction of Remdesivir Anti-infective into Peripheral Vein, Percutaneous Approach, New Technology Group 5 (ICD-10-PCS; 2024-05-26)
DX: U07.1 COVID-19 (principal); J96.01 Acute respiratory failure with hypoxia; F03.93 Unspecified dementia, unspecified severity, with mood disturbance; F03.918 Unspecified dementia, unspecified severity, with other behavioral disturbance; I50.9 Heart failure, unspecified; J44.9 Chronic obstructive pulmonary disease, unspecified; Z91.040 Latex allergy status; Z88.8 Allergy status to other drugs, medicaments and biological substances; Z87.891 Personal history of nicotine dependence; Z87.440 Personal history of urinary (tract) infections; Z66 Do not resuscitate; Z99.81 Dependence on supplemental oxygen
CPT/HCPCS: 0241U; 36415; 36600; 71045; 80053; 82803; 83605; 83735; 83880; 84484; 85025; 93005; 93010; 94762; 96361; 96365; 96367; 96375; 97162; 97530; 99285-25; A9270; J0248; J0360; J0456; J0696; J1650; J1885; J7030; J7050

== ENCOUNTER 2024-07-20 14:10 | Inpatient (IN) | payer MEDICARE, OTHER ==
[~2024-07-20] VITALS: Ht 157.5 cm; Wt 63.2 kg
[2024-07-20 15:23] LABS: BASOPHILS ABSOLUTE AUTO 0.02 K/mm3 (0.00-0.23); BASOPHILS PERCENT AUTO 0 % (0-2); EOSINOPHILS ABSOLUTE AUTO 0.09 K/mm3 (0.00-0.68); EOSINOPHILS PERCENT AUTO 1 % (0-6); Hematocrit 36.7 % (33.0-51.0); IMMATURE GRAN ABSOLUTE AUTO 0.01 K/mm3 (0.00-0.10); IMMATURE GRAN PERCENT AUTO 0 % (0-1); LYMPHOCYTES ABSOLUTE AUTO 2.28 K/mm3 (0.84-5.20); LYMPHOCYTES PERCENT AUTO 32 % (21-46); MONOCYTES PERCENT AUTO 7 % (4-13); Mean Corpuscular HGB 28.8 pg (26.0-34.0); Mean Corpuscular HGB Conc 32.7 g/dL (31.5-36.5); Mean Corpuscular Volume 88 fL (80-100); Mean Platelet Volume 9.9 fL (9.1-12.4); NEUTROPHILS ABSOLUTE AUTO 4.16 K/mm3 (1.96-9.15); NEUTROPHILS PERCENT AUTO 59 % (41-73); Platelet Count 254 K/mm3 (150-400); RDW Coefficient Variation 12.7 % (11.7-14.2); RDW Standard Deviation 41.1 fL (35.1-46.3); Red Blood Cell Count 4.16 M/mm3 (3.80-5.20); White Blood Cell Count 7.06 K/mm3 (4.00-11.30)
[2024-07-20 15:46] LABS: Magnesium, Blood 2.2 mg/dL (1.6-2.4)
[2024-07-20 15:52] LABS: Albumin, Blood 3.3 g/dL (3.4-5.0); Albumin/Globulin Ratio 0.9 (0.8-1.8); Bilirubin, Total 0.3 mg/dL (0.1-1.0); Bun/Creatinine Ratio 29.7 (12.0-20.0); Calcium, Blood 8.6 mg/dL (8.5-10.1); Creatinine, Blood 0.64 mg/dL (0.40-1.00); Globulin, Blood 3.5 g/dL (2.2-4.0); Potassium, Blood 3.3 mmol/L (3.5-5.5); Total Protein, Blood 6.8 g/dL (6.4-8.2)
[2024-07-20] MEDS ORDERED: Midazolam HCl 1MG / ML 2ML Vial IV ONE (16:00)
[2024-07-20] MEDS ORDERED: Labetalol HCL 5 MG/ML 20MLVIAL IV ONE (17:05)
[2024-07-20] MEDS ORDERED: Labetalol HCL 5 MG/ML 4ML Injection (Single Dose) IV ONE (17:05)
[2024-07-20] MEDS ORDERED: CefTRIAXone Sodium 1,000 MG in NS 100 ML IV SCH (19:30)
[2024-07-20] MEDS ORDERED: Azithromycin 500 MG in NS 250 ML IV SCH (20:00)
[2024-07-20 20:21] VITALS: BP 194/83
[2024-07-20] MEDS ORDERED: Aspirin 325 MG Tab PO SCH (21:05)
[2024-07-20] MEDS ORDERED: Atorvastatin 40 MG Tab PO SCH (21:07)
[2024-07-20] MEDS ORDERED: Clopidogrel Bisulfate 75 MG Tab PO SCH (21:07)
[2024-07-20] MEDS ORDERED: Enoxaparin 40 MG/0.4 ML SYR SC SCH (21:08)
[2024-07-20] MEDS ORDERED: Ondansetron HCl 2 MG / ML 2ML Vial IV PRN (21:10)
[2024-07-20] MEDS ORDERED: Potassium Chl 20MEQ/Water100ML 100 ML IV SCH (21:15)
[2024-07-20 22:17] LABS: International Normalized Ratio 0.98; Prothrombin Time Results 10.5 Sec (9.7-11.5)
--- NOTE | 2024-07-20 23:50 | NUR ---
SHIFT SUMMARY: PT AOX3-4 SLID FROM [facility], ORIENTED TO ROOM. SOME CONFUSION AND REPEATING SELF A LOT. BED IN LOWEST POSITION, CALL LIGHT IN REACH. CONTINUING CARE.
[2024-07-21] VITALS (11 sets, daily range): BP systolic 153–199; BP diastolic 65–99
[2024-07-21] MEDS ORDERED: NS 250 ML IV PRN (02:45)
[2024-07-21 04:31] LABS: BASOPHILS ABSOLUTE AUTO 0.01 K/mm3 (0.00-0.23); BASOPHILS PERCENT AUTO 0 % (0-2); EOSINOPHILS ABSOLUTE AUTO 0.09 K/mm3 (0.00-0.68); EOSINOPHILS PERCENT AUTO 1 % (0-6); Hematocrit 36.4 % (33.0-51.0); Hemoglobin 12.2 g/dL (11.5-16.0); IMMATURE GRAN ABSOLUTE AUTO 0.04 K/mm3 (0.00-0.10); IMMATURE GRAN PERCENT AUTO 0 % (0-1); LYMPHOCYTES ABSOLUTE AUTO 2.73 K/mm3 (0.84-5.20); LYMPHOCYTES PERCENT AUTO 24 % (21-46); MONOCYTES ABSOLUTE AUTO 0.72 K/mm3 (0.16-1.47); MONOCYTES PERCENT AUTO 6 % (4-13); Mean Corpuscular HGB 29.2 pg (26.0-34.0); Mean Corpuscular HGB Conc 33.5 g/dL (31.5-36.5); Mean Corpuscular Volume 87 fL (80-100); Mean Platelet Volume 9.6 fL (9.1-12.4); NEUTROPHILS ABSOLUTE AUTO 7.79 K/mm3 (1.96-9.15); NEUTROPHILS PERCENT AUTO 68 % (41-73); Platelet Count 232 K/mm3 (150-400); RDW Coefficient Variation 12.7 % (11.7-14.2); RDW Standard Deviation 40.3 fL (35.1-46.3); Red Blood Cell Count 4.18 M/mm3 (3.80-5.20); White Blood Cell Count 11.38 K/mm3 (4.00-11.30)
--- NOTE | 2024-07-21 04:47 | NUR ---
SHIFT SUMMARY: PT AOX3-4 CONFUSED AND FORGETFUL, BUT ABLE TO ANSWER ORIENTATIONS QUESTIONS APPROPRIATELY. PT IS A POOR HISTORIAN AND CONSTANTLY REPEATS QUESTIONS AND PHRASES. TOLERATING MEDICATIONS WELL AND PERMISSIVE HTN IN PLACE. PT FORGETFUL OF MEDICAL HISTORY OR EVEN WHAT FACILITY SHE LIVES IN. EXPRESSES SOME CONCERNS ABOUT SAFETY AND RETURNING TO THAT FACILITY. NO ACUTE EVENTS OVERNIGHT. PT IN BED, BED IN LOWEST POSITION, BED ALARM ON, CALL LIGHT IN REACH. CONTINUING CARE.
[2024-07-21 04:52] LABS: Albumin, Blood 3.3 g/dL (3.4-5.0); Bilirubin, Total 0.5 mg/dL (0.1-1.0); Bun/Creatinine Ratio 29.1 (12.0-20.0); Calcium, Blood 8.7 mg/dL (8.5-10.1); Creatinine, Blood 0.55 mg/dL (0.40-1.00); Globulin, Blood 3.4 g/dL (2.2-4.0); Potassium, Blood 3.9 mmol/L (3.5-5.5); Total Protein, Blood 6.7 g/dL (6.4-8.2)
[2024-07-21 12:54] LABS: Source, Urine Clean Catch
[2024-07-21 12:59] LABS: Appearance, Urine Clear (Clear); Bilirubin, Urine Neg (Neg); Blood, Urine 5+ (Neg); Color, Urine Yellow (P-Yellow); Glucose Qualitative, Urine Neg (Neg); Ketones, Urine 1+ (Neg); Leukocyte Esterase, Urine 1+ (Neg); Nitrite, Urine Neg (Neg); Protein, Urine 2+ (Neg); Specific Gravity, Urine 1.015 (1.003-1.022); Urobilinogen, Urine NORM (Normal)
[2024-07-21 13:07] LABS: Mucus Light (0-Heavy); Squamous Epithelial Cells Mod /hpf (Few)
[2024-07-21 13:08] LABS: Bacteria Mod /hpf; Red Blood Cells, Urine 50-100 /hpf (0-2)
--- NOTE | 2024-07-21 15:00 | NUR ---
PATIENT STATED HAVING TROUBLE CLEARING SECREATIONS AFTER LAYING FLAT FOR STRAIGHT CATH THIS AFTERNOON. SUCTION SET UP AT BEDSIDE AND COPIOUS AMOUNT OF THIN WHITE SPUTUM SUCTIONED. PATIENT BEGAN TO REQUIRE MORE O2, DR BARBER WAS NOTIFIED AND RESPIRATORY THERAPIST CAME TO BEDSIDE. SATS AT 78%, RT PLACED PATIENT ON NON REBREATHER AND PERFORMED NASOTRACHEAL SUCTION. PATIENT WAS THEN SWTICHED OVER TO OXYMASK AT 15LO2, AND SATS >92%. DR BARBER ARRIVED AT BEDSIDE AND GAVE VERBAL ORDERS TO TRANSFER TO PCU. SCOPALAMINE PATCH PLACED FOR SECRETIONS, PATIENT WEANED DOWN TO 10L ON OXYMASK AND WAS ABLE TO REST. PATIENT MADE NPO, SWALLOW STUDY ORDERED FOR TOMORROW. NS STARTED AT 75 ML/HR AND ANTIBIOTICS CHANGED TO MAXIPIME AND FLAGYL. FAMILY NOTIFIED AND DR BARBER WAS GOING TO CONTACT DAUGHTER ABOUT CODE STATUS BECAUSE PATIENT HAS A DNR PER FAMILY. AWAITING BED IN PCU.
[2024-07-21] MEDS ORDERED: NS 1,000 ML IV SCH (15:20)
[2024-07-21] MEDS ORDERED: Scopolamine Hydrobromide Patch TOP SCH (15:20)
[2024-07-21] MEDS ORDERED: MetroNIDAZOLE 500MG/NS 100 ml 100 ML IV SCH (16:00)
--- NOTE | 2024-07-21 17:21 | NUR ---
PATIENT TRANSFERRED TO PCU 19, REPORT CALLED TO DONNA STUDENT NURSE AND DEBORAH RN. PATIENT BELONGINGS SENT WITH PATIENT AND FAMILY NOTIFIED OF TRANSFER.
[2024-07-21] MEDS ORDERED: Cefepime HCl 2,000 MG in NS 100 ML IV SCH (18:00)
--- NOTE | 2024-07-21 18:06 | NUR ---
171 Pt arrived in bed from medical floor, alert, but not conversant. Frequent coughing with difficulty expectorating. She appears very weak, on oxymizer mask at 8 l/min of O2 delivery. Oral suctioning done. She is unable to state her age, nor the date. States her name is Myra and is answering "yes" and "no" to very few questions. Pupils are equal in size. She is resistant to lights in her eyes and oral care. Limbs are stiff and left arm appears contractured. She has foot drop on both feet. Her friend Leatha of 50 years states that the left hand is very painful for the pt to have opened by passive ROM, but that is new this week. Says that the foot drop was noted some time after her arrival to [facility] 2 years ago. Still waiting for chest XRay to be done.
--- NOTE | 2024-07-21 18:12 | NUR ---
RECEIVED POLST form from [facility]. Pt's code status changed per Dr. Henley order to align with pt's current POLST. Peterson catheter was not placed. Per report the peterson was ordered due to pt's incontinence and concerns for hypoxia with hygiene care; however, pt has hx of frequent UTI and the purewick was placed for accurate I&O and to protect the pt's skin and reduce the frequency of bed and brief changes. The pt tolerated the placement of purewick without hypoxia.
[2024-07-21] MEDS ORDERED: Labetalol HCL 5 MG/ML 4ML Injection (Single Dose) IV PRN (20:40)
[2024-07-21] MEDS ORDERED: CefTRIAXone Sodium 1,000 MG in NS 100 ML IV SCH (21:00)
[2024-07-21] MEDS ORDERED: Azithromycin 500 MG in NS 250 ML IV SCH (21:00)
--- NOTE | 2024-07-21 22:09 | NUR ---
PT STABLE IN BED, VITAL SIGNS WNL. PT ON TELE, RHYTHM SINUS ARRHYTMIA. PT AOX3, ABLE TO MAKE NEEDS KNOWN. PT TAKES PILLS WHOLE WITH WATER. PT ATTEMPTS TO USE CALL LIGHT BUT IS INTERMITTENTLY SUCCESSFUL. PT INCONTINENT OF BOTH BOWEL AND BLADDER. PUREWICK IN PLACE. IV FLUIDS INFUSING W/O PROBLEM. PT TO BE TRANSFERRED UP TO MEDICAL ROOM 345. REPORT GIVEN TO ANGEL OBANDO.
--- NOTE | 2024-07-21 22:44 | NUR ---
ASSUMED CARE OF PT AT 1900, RECEIVED REPORT FROM DEBORAH ORTIZ. PT IN BED, AOX1. PT ON 10L OXIMASK, TACHYPNEIC. SINUS TACHYCARDIA ON MONITOR RATE 110-120. PT HAS A MOIST, PRODUCTIVE COUGH. PT HAS DIFFICULTY GETTING SPUTUM UP WITH COUGH, SUCTION IS HELPING PT WITH SPUTUM AND SECRECTION MANAGEMENT AT THIS. PT STARTED TO DECOMPENSATE SHORTLY AFTER SHIFT CHANGE AND WAS PLACED ON 15L NON-REBREATHER D/T SAT 83-85%. SATS IMPROVED MILDY TO 86-88% AND WORK OF BREAHING INCREASED. RT WAS CALLED AND DR. PANDA WAS CALLED WELL. PHYSICIAN EXAMINED PT, NEW ORDERS PLACED FOR HHFNC AND CPT, RT INITIATED. PT ALSO IS HYPERTENSIVE 190S/90S, LABETALOL GIVEN PER PHYSICIAN ORDER. PT DID PRODUCE A LARGE AMOUND OF THICK, YELLOW/GREEN SPUTUM AND O2 SATURATION IMPROVED ON HHFNC TO 93-94%. BP IMPROVING BUT STILL ELEVATED. WORK OF BREATHING APPEARS IMPROVED, PT REMAINS TACHYPNEIC.
[2024-07-22] VITALS (24 sets, daily range): BP systolic 137–190; BP diastolic 54–104
[2024-07-22 07:46] LABS: BASOPHILS ABSOLUTE AUTO 0.02 K/mm3 (0.00-0.23); BASOPHILS PERCENT AUTO 0 % (0-2); EOSINOPHILS ABSOLUTE AUTO 0.01 K/mm3 (0.00-0.68); EOSINOPHILS PERCENT AUTO 0 % (0-6); Hematocrit 35.2 % (33.0-51.0); Hemoglobin 11.6 g/dL (11.5-16.0); IMMATURE GRAN ABSOLUTE AUTO 0.08 K/mm3 (0.00-0.10); IMMATURE GRAN PERCENT AUTO 1 % (0-1); LYMPHOCYTES ABSOLUTE AUTO 0.94 K/mm3 (0.84-5.20); LYMPHOCYTES PERCENT AUTO 5 % (21-46); MONOCYTES ABSOLUTE AUTO 0.91 K/mm3 (0.16-1.47); MONOCYTES PERCENT AUTO 5 % (4-13); Mean Corpuscular HGB 28.5 pg (26.0-34.0); Mean Corpuscular Volume 87 fL (80-100); Mean Platelet Volume 9.8 fL (9.1-12.4); NEUTROPHILS ABSOLUTE AUTO 15.52 K/mm3 (1.96-9.15); NEUTROPHILS PERCENT AUTO 89 % (41-73); Platelet Count 225 K/mm3 (150-400); RDW Coefficient Variation 12.7 % (11.7-14.2); RDW Standard Deviation 39.8 fL (35.1-46.3); Red Blood Cell Count 4.07 M/mm3 (3.80-5.20); White Blood Cell Count 17.48 K/mm3 (4.00-11.30)
[2024-07-22 07:49] LABS: Albumin, Blood 3.1 g/dL (3.4-5.0); Albumin/Globulin Ratio 0.8 (0.8-1.8); Bilirubin, Total 0.8 mg/dL (0.1-1.0); Bun/Creatinine Ratio 25.9 (12.0-20.0); Calcium, Blood 8.7 mg/dL (8.5-10.1); Creatinine, Blood 0.58 mg/dL (0.40-1.00); Globulin, Blood 3.7 g/dL (2.2-4.0); Potassium, Blood 3.1 mmol/L (3.5-5.5); Total Protein, Blood 6.8 g/dL (6.4-8.2)
--- NOTE | 2024-07-22 08:36 | NUR ---
The pt looks better than she did last night. Her lung sounds are fine crackles throughout, without wheezing, and productive moist cough.
--- NOTE | 2024-07-22 12:52 | NUR ---
The pt has been alert, but oriented only to stating her name. Her oxygen needs have not changed much since this morning. Coughing is less frequent, but she still has a very coarse hacking cough with oral suctioning needed to remove secretions. Often needs reminders to deep breathe and cough. Vital signs are stable. She is strict NPO since having the modified barium swallow study this morning. Unable to take oral meds due to her aspiration. Palliative care RN notified and requested that they contact the pt's daughter to see if dobhoff feeding tube will be indicated, with consideration for the pt's underlying diagnoses and advanced dementia.
--- NOTE | 2024-07-22 14:42 | NUR ---
DISCUSSED CASE WITH PROVIDER. ATTEMPETED TO CONTACT DAUGHTER, LEFT MESSAGE.
--- NOTE | 2024-07-22 14:54 | NUR ---
Pt expressed desire for television. I turned on a channel that she enjoyed for therapeutic distraction. Pt expressed no further questions or concerns with call light in reach. Pt continues to have wet cough with fine crackles upon auscultation.
--- NOTE | 2024-07-22 16:08 | NUR ---
SPOKE TO PATIENTS FRIEND JESSE OVER THE PHONE. RELAYED RESULTS OF BARIUM AND DISCUSSED OPTIONS OF CARE. SHE EXPRESSED UNDERSTANDING AND REPORTED THAT SHE WOULD DISCUSS WITH PATIENTS DAUGHTER. PATIENTS DAUGHTER KI CALLED AND EXPRESSED UNDERSTANDING OF OPTIONS. SHE REPORTED THAT HER MOTHER WOULD PREFER TO FOCUS ON COMFORT AND WOULD NOT WANT LIFE PROLONGING INTERVENTIONS. DISCUSSED CHOICE WITH CARE COORDINATIOR AND PROVIDER.
--- NOTE | 2024-07-22 18:00 | NUR ---
Pt friend Leatha is here. Leatha asked the pt about her POLST, if she remembered the DNR/DNI status, pt said yes. Leatha asked if that was still what the pt wanted, pt said yes.
--- NOTE | 2024-07-22 18:23 | NUR ---
pt was given labetolol 10 mg IV for consistently high blood pressure; last one was 186/75. Heart rate is 87 bpm, sinus rhythm after administration. B/p 155/54 post administration.
[2024-07-22] MEDS ORDERED: Labetalol HCL 5 MG/ML 4ML Injection (Single Dose) IV ONE (21:20)
[2024-07-23] VITALS (9 sets, daily range): BP systolic 141–181; BP diastolic 56–84
--- NOTE | 2024-07-23 04:47 | NUR ---
SHIFT SUMMARY PT REMAINS ALERT AND ORIENTED TO ONLY SELF. VERY SOFT SPOKEN HOWEVER ABLE TO ANSWER QUESTIONS SLOWLY. PT MORE DISORIENTED THROUGH THE NIGHT. THIS RN NEEDED TO REPETITIVELY ASK PT TO COUGH. PT CONTINUES TO HAVE WET COUGH, DEEP SUCTIONING PRN. PT ON TELE NSR 70s-90s. BPs ELEVATED THROUGHOUT NIGHT. PRN LABETOLOL GIVEN AND ADDITIONAL DOSE PER MD GIVEN FOR SYSTOLIC 190s. PT REMAINED >92%. RT TITRATED PT DOWN TO 35L 40% FIO2 ON AIRVO. PT TURNED Q2HR THROUGHOUT NIGHT. NO PAIN NOTED. CONTINUES TO HAVE NS RUNNING @ 75CC/HR WITH ABX GIVEN PER EMAR. PT HAD ADEQUATE YELLOW OUTPUT THROUGH PW THROUGHOUT NIGHT. ORAL CARE PERFORMED X2. NO FURTHER QUESTIONS OR CONCERNS AT THIS TIME. WILL CONTINUE WITH PLAN OF CARE.
[2024-07-23] MEDS ORDERED: Labetalol HCL 5 MG/ML 4ML Injection (Single Dose) IV ONE (06:00)
[2024-07-23] MEDS ORDERED: Labetalol HCL 5 MG/ML 4ML Injection (Single Dose) IV PRN (06:00)
[2024-07-23] MEDS ORDERED: Atropine Sulfate 1% Opth Soln 2ML BTL MM PRN (09:55)
--- NOTE | 2024-07-23 10:03 | NUR ---
Pt was sleeping this morning. Opens eyes readily to stimulation, and follows some directions, but she is very sleepy. She is speaking a few words. Confused, but calm and showing no anxiety nor distress. Cooperative with care. Pericare and attends change done, purewick replaced. Repositioned to her right side. Pt is on 3 l/min O2 delivery and tolerating well with spo2 96%. She states NO when asked if she is having any pain. Occasional productive cough. Oral care complete and pt appears to be comfortable.
[2024-07-23] MEDS ORDERED: LORazepam 1 MG Tab PO PRN (14:30)
[2024-07-23] MEDS ORDERED: Morphine Sulfate 20 MG/1ML 1 ML Oral Syringe SL PRN (14:30)
--- NOTE | 2024-07-23 15:49 | NUR ---
THIS RN TO ASSUME CARE AT APPROX 1400
--- NOTE | 2024-07-23 16:40 | NUR ---
Pt is resting comfortably on her right side. No supplemental O2 requirements at this time. Respirations are even and unlabored, HOB elevated at 16% and spo2 is 94%.
--- NOTE | 2024-07-23 16:43 | NUR ---
Pt is resting comfortably on her right side. O2 requirements are 0.5 l/min at this time. Respirations are even and unlabored, HOB elevated at 16% and spo2 is 94%.
--- NOTE | 2024-07-23 21:49 | NUR ---
UPDATE CALL PLACED TO NIGHT RESIDENT REGARDING ORDER CLARIFICATION. PLAN FOR PATIENT TO BE DISCHARGED BACK TO HER FACILITY ON HOSPICE TOMORROW. SPOKE WITH RESIDENT REGARDING PATIENT'S PLAN AND STATUS. ORDERS RECEIVED FOR TELE TO BE DISCONTINUED AND PATIENT IS MEDICAL STATUS.
[2024-07-24 05:02] VITALS: BP 178/79
--- NOTE | 2024-07-24 06:35 | NUR ---
SHIFT SUMMARY PT CHANGED TO MEDICAL NO TELE STATUS THIS SHIFT. PT A/O X 1, CONFUSED, BUT WILL OCCASIONALLY SAY WORDS. PT HYPERTENSIVE, MEDICATED PER EMAR W/ PRN MEDICATIONS. SPO2>90% ON 0.5L NC. PT STRICT NPO D/T ASPIRATION. RUDOLPH IN PLACE, DRAINING YELLOW URINE TO GRAVITY. PLAN TO DISCHARGE BACK TO FACILITY. NO OTHER CHANGES. WILL REPORT TO ONCOMING RN.
--- NOTE | 2024-07-24 12:40 | NUR ---
PT DC'D TO [facility] HOSPICE VIA [facility] W/ALL PERSONAL BELONGINGS. PT A&O TO SELF ON RA. RUDOLPH IN PLACE DRAINING TO GRAVITY. FAMILY TO MEET HER @ FACILITY. IV REMOVED PRIOR TO TRANSPORT.
== END 2024-07-24 12:41 | disposition hospice, home (50) | DRG 64 ==
LOC: ER 14:10 → MEDS 17:55 → PCU 07-21 17:35
PROVIDERS: Family Medicine; Student in an Organized Health Care Education/Training Program; ADMIT Internal Medicine
PROC: 5A0945A Assistance with Respiratory Ventilation, 24-96 Consecutive Hours, High Flow/Velocity Cannula (ICD-10-PCS; principal; 2024-07-22)
DX: I63.9 Cerebral infarction, unspecified (principal); J18.9 Pneumonia, unspecified organism; J96.01 Acute respiratory failure with hypoxia; G81.94 Hemiplegia, unspecified affecting left nondominant side; F03.918 Unspecified dementia, unspecified severity, with other behavioral disturbance; J44.0 Chronic obstructive pulmonary disease with (acute) lower respiratory infection; Z66 Do not resuscitate; Z51.5 Encounter for palliative care; R13.10 Dysphagia, unspecified; J43.9 Emphysema, unspecified; Z91.040 Latex allergy status; Z88.8 Allergy status to other drugs, medicaments and biological substances; Z85.3 Personal history of malignant neoplasm of breast
CPT/HCPCS: 31720; 36415; 70450; 70496; 70498; 71045; 74230; 80053; 81001; 82947; 83735; 83880; 85025; 85610; 92610; 92611; 93005; 93010; 93306; 94667; 94762; 96374-59; 96375-59; 97161; 97530; 99285-25; A6590; A9270; J0456; J0692; J0696; J1650; J2250; J3480; J7030; J7050; Q9967